=== PATIENT | female | born 2000 | race Hispanic/Latino ===

== ENCOUNTER 2022-01-14 03:15 | Emergency (ER) | payer OTHER ==
[~2022-01-14] VITALS: Ht 165.1 cm; Wt 59.9 kg
[2022-01-14] MEDS ORDERED: SODIUM CHLORIDE 0.9% 1000ML 1,000 ML IV STA ×2 (03:29→05:23)
[2022-01-14] MEDS ORDERED: FERROUS SULFAT325 MG PO (03:45)
[2022-01-14] MEDS ORDERED: PROVERA5 MG PO (03:45)
[2022-01-14] MEDS ORDERED: CEFTRIAXONE 1 GM VIAL IV ONE (04:15)
[2022-01-14] MEDS ORDERED: SODIUM CHLORIDE 0.9% 1000ML 1,000 ML ONE ×2 (04:15→06:13)
[2022-01-14] MEDS ORDERED: CEFDINIR300 MG PO (04:26)
[2022-01-14] MEDS ORDERED: CEFTRIAXONE 1 GM VIAL ONE (04:33)
[2022-01-14] MEDS ORDERED: ACETAMINOPHEN 325 MG TAB ONE (04:33)
[2022-01-14] MEDS ORDERED: ACETAMINOPHEN 325 MG TAB PO ONE (05:30)
[2022-01-14] MEDS ORDERED: FENTANYL CITRATE/PF 100MCG/2 ML INJ IV ONE (07:00)
[2022-01-14] MEDS ORDERED: FENTANYL CITRATE/PF 100MCG/2 ML INJ ONE (07:07)
== END 2022-01-14 08:21 | disposition other institution (70) ==
LOC: FSED 03:30
DX: O03.1 Delayed or excessive hemorrhage following incomplete spontaneous abortion (principal); D64.9 Anemia, unspecified; N39.0 Urinary tract infection, site not specified; Z20.822 Contact with and (suspected) exposure to COVID-19
CPT/HCPCS: 80053; 81003; 81025; 85025; 99285; J0696; J3010; J7030; U0002